=== PATIENT | male | born 1960 | race Caucasian/White ===

== ENCOUNTER 2016-07-30 10:37 | Inpatient (IN) | payer MEDICAID, OTHER, SELFPAY ==
[~2016-07-30] VITALS: Ht 185.4 cm; Wt 198.4 kg
[2016-07-30] MEDS ORDERED: methylPREDNISolone SOD SUCC 125 MG/2 ML ONE (11:25)
[2016-07-30] MEDS ORDERED: methylPREDNISolone SOD SUCC 125 MG/2 ML IVP ONE (11:30)
[2016-07-30] MEDS ORDERED: ALBUTEROL/IPRATROPIUM 2.5MG/0.5MG, 3 ML NPPB PRN (11:30)
[2016-07-30] MEDS ORDERED: SODIUM CHLORIDE FLUSH 10ML SYR IVF ONE (11:30)
[2016-07-30] MEDS ORDERED: ALBUTEROL/IPRATROPIUM 2.5MG/0.5MG, 3 ML ONE (11:50)
[2016-07-30 12:07] LABS: BLOOD UREA NITROGEN 24 mg/dL (7-18)
[2016-07-30 12:12] LABS: IS PT STATUS REG ER OR PRE ER? YES
[2016-07-30 12:16] LABS: DIFF TOTAL CELLS COUNTED 100 CELL DIFF
[2016-07-30 12:18] LABS: VERIFY COUNTS? YES
[2016-07-30] MEDS ORDERED: SODIUM CHLORIDE 0.9% 1,000ML IVBOLUS ONE ×2 (12:30)
[2016-07-30] MEDS ORDERED: AZITHROMYCIN 500 MG in SODIUM CHLORIDE 0.9% 250 ML IVPB ONE (12:30)
[2016-07-30] MEDS ORDERED: CEFTRIAXONE PMX 1GM/50ML 50 ML IVPB ONE (12:30)
[2016-07-30 12:50] LABS: ABG COLLECTION SITE RIGHT RADIAL; COLLATERAL CIRCULATION TESTING NORMAL
[2016-07-30] MEDS ORDERED: DIVA500T2 PO (13:04)
[2016-07-30] MEDS ORDERED: GABA600T2 PO (13:04)
[2016-07-30] MEDS ORDERED: METO25TA35 PO (13:04)
[2016-07-30] MEDS ORDERED: AMLO10TA4 PO (13:04)
[2016-07-30] MEDS ORDERED: LISI-170 PO (13:04)
[2016-07-30] MEDS ORDERED: MONT10TA6 PO (13:04)
[2016-07-30] MEDS ORDERED: ZOLP10TA PO (13:04)
[2016-07-30] MEDS ORDERED: FAMO-79 PO (13:04)
[2016-07-30] MEDS ORDERED: APIX5TAB PO (13:04)
[2016-07-30] MEDS ORDERED: LORA0.5T PO (13:04)
[2016-07-30] MEDS ORDERED: SODIUM CHLORIDE 0.9% 1,000 ML IV ONE (13:33)
[2016-07-30] MEDS ORDERED: QUET300T5 PO (13:36)
[2016-07-30] MEDS ORDERED: ALBUTEROL SULFATE 2.5 MG/3 ML ONE (13:58)
[2016-07-30] MEDS ORDERED: ONDANSETRON 2MG/ML, 2ML IVPush PRN (14:00)
[2016-07-30] MEDS ORDERED: OXYcodone IR 5MG TABLET PO PRN (14:00)
[2016-07-30] MEDS ORDERED: ZOLPIDEM 10MG TABLET PO PRN (14:00)
[2016-07-30] MEDS ORDERED: CEFTRIAXONE 1,000 MG in SODIUM CHLORIDE 0.9% 50 ML IV SCH (14:00)
[2016-07-30] MEDS ORDERED: POLYETHYLENE GLYCOL 17 GM PACKET PO PRN (14:00)
[2016-07-30] MEDS ORDERED: ACETAMINOPHEN 325 MG TABLET PO PRN (14:00)
[2016-07-30] MEDS: AZITHROMYCIN 500 MG in SODIUM CHLORIDE 0.9% 250 ML IV SCH (14:01)
[2016-07-30] MEDS ORDERED: CEFTRIAXONE PMX 1GM/50ML 50 ML ONE (14:11)
[2016-07-30 14:49] LABS: IS PT STATUS REG ER OR PRE ER? YES
[2016-07-30] MEDS ORDERED: NALOXONE 0.4 MG/ML, 1ML IVPush ONE (17:30)
[2016-07-30] MEDS ORDERED: ALBUTEROL SULFATE 2.5 MG/3 ML NPPB SCH (18:00)
[2016-07-30] MEDS: SODIUM CHLORIDE 0.9% 1,000 ML IV SCH (18:10)
[2016-07-30] MEDS: methylPREDNISolone SOD SUCC 125 MG/2 ML IVPush SCH (18:11)
[2016-07-30 20:00] VITALS: BP 102/72
[2016-07-30 20:08] LABS: IS PT STATUS REG ER OR PRE ER? NO
[2016-07-30] MEDS: SODIUM CHLORIDE FLUSH 3ML SYRINGE IVF SCH (21:00)
[2016-07-30] MEDS: DIVALPROEX 500 MG TABLET.DR PO SCH (21:22)
[2016-07-30] MEDS: GABAPENTIN 300 MG CAPSULE PO SCH (21:23)
[2016-07-30] MEDS: QUETIAPINE 100MG TABLET PO SCH (21:23)
[2016-07-30] MEDS: FAMOTIDINE 20 MG TABLET PO SCH (21:24)
[2016-07-30] MEDS: MONTELUKAST 10 MG TABLET PO SCH (21:24)
[2016-07-30] MEDS: LORazepam 0.5MG TABLET PO SCH (21:24)
[2016-07-30] MEDS: APIXABAN 5 MG TABLET PO SCH (21:24)
[2016-07-30] MEDS ORDERED: ZOLPIDEM 5MG TABLET ONE (21:45)
[2016-07-31] MEDS: methylPREDNISolone SOD SUCC 125 MG/2 ML IVPush SCH ×4 (00:07→18:43)
[2016-07-31] MEDS: ALBUTEROL/IPRATROPIUM 2.5MG/0.5MG, 3 ML NPPB SCH ×7 (02:00→23:33)
[2016-07-31 04:47] LABS: ASPARTATE AMINO TRANSFERASE 42 U/L (15-37); BLOOD UREA NITROGEN 31 mg/dL (7-18)
[2016-07-31 05:05] LABS: DIFF TOTAL CELLS COUNTED 100 CELL DIFF
[2016-07-31 05:07] LABS: VERIFY COUNTS? YES
[2016-07-31] MEDS: SODIUM CHLORIDE 0.9% 1,000 ML IV SCH ×2 (05:36→16:38)
[2016-07-31] MEDS: LORazepam 0.5MG TABLET PO SCH (09:00)
[2016-07-31] MEDS: SODIUM CHLORIDE FLUSH 3ML SYRINGE IVF SCH ×2 (09:00→21:00)
[2016-07-31] MEDS: QUETIAPINE 100MG TABLET PO SCH ×2 (09:32→21:22)
[2016-07-31] MEDS: FAMOTIDINE 20 MG TABLET PO SCH ×2 (09:32→21:22)
[2016-07-31] MEDS: SENNA/DOCUSATE TABLET PO SCH (09:32)
[2016-07-31] MEDS: DIVALPROEX 500 MG TABLET.DR PO SCH ×2 (09:33→21:22)
[2016-07-31] MEDS: GABAPENTIN 300 MG CAPSULE PO SCH ×2 (09:33→21:22)
[2016-07-31] MEDS: APIXABAN 5 MG TABLET PO SCH ×2 (09:33→21:23)
[2016-07-31 12:22] LABS: ABG COLLECTION SITE LEFT BRACHIAL
[2016-07-31] MEDS: INSULIN ASPART 100 UNITS/ML, PEN SQ-INSULIN SCH ×3 (12:22→21:19)
[2016-07-31] MEDS: SODIUM CHLORIDE FLUSH 10ML SYR IVF PRN ×2 (12:23→21:23)
[2016-07-31] MEDS: CEFTRIAXONE PMX 1GM/50ML 50 ML IV SCH (13:06)
[2016-07-31 13:18] LABS: FIO2 50 %
[2016-07-31] MEDS: AZITHROMYCIN 500 MG in SODIUM CHLORIDE 0.9% 250 ML IV SCH (14:37)
[2016-07-31] MEDS: MONTELUKAST 10 MG TABLET PO SCH (21:23)
[2016-08-01] MEDS: methylPREDNISolone SOD SUCC 125 MG/2 ML IVPush SCH ×5 (00:38→23:21)
[2016-08-01] MEDS: SODIUM CHLORIDE 0.9% 1,000 ML IV SCH (03:01)
[2016-08-01] MEDS: ALBUTEROL/IPRATROPIUM 2.5MG/0.5MG, 3 ML NPPB SCH ×4 (03:19→19:24)
[2016-08-01 04:47] LABS: BLOOD UREA NITROGEN 31 mg/dL (7-18)
[2016-08-01] MEDS: INSULIN ASPART 100 UNITS/ML, PEN SQ-INSULIN SCH ×4 (08:15→20:20)
[2016-08-01] MEDS: INSULIN DETEMIR 100 UNITS/ML, PEN SQ-INSULIN SCH ×2 (08:22→20:19)
[2016-08-01] MEDS ORDERED: SODIUM CHLORIDE 0.9% 1,000 ML IV SCH (08:30)
[2016-08-01] MEDS: SENNA/DOCUSATE TABLET PO SCH (09:00)
[2016-08-01] MEDS: APIXABAN 5 MG TABLET PO SCH ×2 (10:58→20:18)
[2016-08-01] MEDS: DIVALPROEX 500 MG TABLET.DR PO SCH ×2 (10:58→20:18)
[2016-08-01] MEDS: FAMOTIDINE 20 MG TABLET PO SCH ×2 (10:59→20:18)
[2016-08-01] MEDS: GABAPENTIN 300 MG CAPSULE PO SCH ×2 (10:59→20:19)
[2016-08-01] MEDS: QUETIAPINE 100MG TABLET PO SCH ×2 (11:00→20:18)
[2016-08-01] MEDS: SODIUM CHLORIDE FLUSH 10ML SYR IVF PRN ×2 (11:20→11:22)
[2016-08-01] MEDS: SODIUM CHLORIDE FLUSH 3ML SYRINGE IVF SCH ×2 (11:25→20:19)
[2016-08-01] MEDS: CEFTRIAXONE PMX 1GM/50ML 50 ML IV SCH (12:31)
[2016-08-01] MEDS: AZITHROMYCIN 500 MG in SODIUM CHLORIDE 0.9% 250 ML IV SCH (14:22)
[2016-08-01] MEDS ORDERED: ZOLPIDEM 5MG TABLET ONE (20:16)
[2016-08-01] MEDS: ZOLPIDEM 10MG TABLET PO PRN (20:17)
[2016-08-01] MEDS: MONTELUKAST 10 MG TABLET PO SCH (20:18)
[2016-08-02 04:42] LABS: BLOOD UREA NITROGEN 25 mg/dL (7-18)
[2016-08-02] MEDS: methylPREDNISolone SOD SUCC 125 MG/2 ML IVPush SCH ×4 (05:53→22:08)
[2016-08-02] MEDS: QUETIAPINE 100MG TABLET PO SCH ×2 (07:47→21:44)
[2016-08-02] MEDS: APIXABAN 5 MG TABLET PO SCH ×2 (07:47→21:45)
[2016-08-02] MEDS: FAMOTIDINE 20 MG TABLET PO SCH ×2 (07:47→21:44)
[2016-08-02] MEDS: DIVALPROEX 500 MG TABLET.DR PO SCH ×2 (07:47→21:45)
[2016-08-02] MEDS: GABAPENTIN 300 MG CAPSULE PO SCH ×2 (07:48→21:45)
[2016-08-02] MEDS: INSULIN ASPART 100 UNITS/ML, PEN SQ-INSULIN SCH ×4 (07:49→21:46)
[2016-08-02] MEDS: INSULIN DETEMIR 100 UNITS/ML, PEN SQ-INSULIN SCH ×2 (07:50→21:45)
[2016-08-02] MEDS: SODIUM CHLORIDE FLUSH 3ML SYRINGE IVF SCH ×2 (07:50→21:00)
[2016-08-02] MEDS: SENNA/DOCUSATE TABLET PO SCH (07:50)
[2016-08-02] MEDS: ALBUTEROL/IPRATROPIUM 2.5MG/0.5MG, 3 ML NPPB SCH (09:00)
[2016-08-02] MEDS: METOPROLOL TARTRATE 25 MG TABLET PO SCH ×2 (10:48→21:45)
[2016-08-02] MEDS: LISINOPRIL 20 MG TABLET PO SCH ×2 (10:49→21:44)
[2016-08-02] MEDS: FUROSEMIDE 40 MG TABLET PO SCH (10:49)
[2016-08-02 11:25] VITALS: BP 146/83
[2016-08-02] MEDS: CEFTRIAXONE PMX 1GM/50ML 50 ML IV SCH (12:26)
[2016-08-02] MEDS ORDERED: ALBUTEROL/IPRATROPIUM 2.5MG/0.5MG, 3 ML NPPB PRN (15:00)
[2016-08-02] MEDS: AZITHROMYCIN 500 MG in SODIUM CHLORIDE 0.9% 250 ML IV SCH (15:24)
[2016-08-02 19:58] VITALS: BP 156/82
[2016-08-02] MEDS: MONTELUKAST 10 MG TABLET PO SCH (21:44)
[2016-08-02] MEDS: ZOLPIDEM 10MG TABLET PO PRN (22:08)
[2016-08-03] MEDS: hydrALAzine 20 MG/ML, 1ML IVPush PRN ×2 (00:43→20:08)
[2016-08-03 01:29] VITALS: BP 172/86
[2016-08-03] MEDS: methylPREDNISolone SOD SUCC 125 MG/2 ML IVPush SCH ×2 (06:20→10:55)
[2016-08-03 06:48] LABS: BLOOD UREA NITROGEN 33 mg/dL (7-18)
[2016-08-03] MEDS: INSULIN ASPART 100 UNITS/ML, PEN SQ-INSULIN SCH ×4 (07:00→20:02)
[2016-08-03 08:00] VITALS: BP 156/98
[2016-08-03] MEDS: INSULIN DETEMIR 100 UNITS/ML, PEN SQ-INSULIN SCH ×2 (08:00→20:01)
[2016-08-03] MEDS: SODIUM CHLORIDE FLUSH 3ML SYRINGE IVF SCH ×2 (09:00→20:03)
[2016-08-03] MEDS: QUETIAPINE 100MG TABLET PO SCH ×2 (10:53→20:00)
[2016-08-03] MEDS: APIXABAN 5 MG TABLET PO SCH ×2 (10:54→19:59)
[2016-08-03] MEDS: FUROSEMIDE 40 MG TABLET PO SCH (10:54)
[2016-08-03] MEDS: DIVALPROEX 500 MG TABLET.DR PO SCH ×2 (10:54→20:00)
[2016-08-03] MEDS: LISINOPRIL 20 MG TABLET PO SCH ×2 (10:54→20:00)
[2016-08-03] MEDS: METOPROLOL TARTRATE 25 MG TABLET PO SCH ×2 (10:54→20:00)
[2016-08-03] MEDS: SENNA/DOCUSATE TABLET PO SCH (10:54)
[2016-08-03] MEDS: FAMOTIDINE 20 MG TABLET PO SCH ×2 (10:54→19:59)
[2016-08-03] MEDS: GABAPENTIN 300 MG CAPSULE PO SCH ×2 (10:55→20:00)
[2016-08-03 12:02] VITALS: BP 156/76
[2016-08-03] MEDS: CEFTRIAXONE PMX 1GM/50ML 50 ML IV SCH (12:36)
[2016-08-03] MEDS: AZITHROMYCIN 500 MG in SODIUM CHLORIDE 0.9% 250 ML IV SCH (14:02)
[2016-08-03 19:28] VITALS: BP 170/95
[2016-08-03] MEDS: MONTELUKAST 10 MG TABLET PO SCH (20:00)
[2016-08-03] MEDS: ZOLPIDEM 10MG TABLET PO PRN (20:01)
[2016-08-03] MEDS: methylPREDNISolone SOD SUCC 40 MG/ML IVPush SCH (20:02)
[2016-08-04 04:51] VITALS: BP 153/83
[2016-08-04] MEDS: INSULIN ASPART 100 UNITS/ML, PEN SQ-INSULIN SCH ×2 (08:08→12:27)
[2016-08-04] MEDS: INSULIN DETEMIR 100 UNITS/ML, PEN SQ-INSULIN SCH (08:09)
[2016-08-04 08:16] VITALS: BP 155/80
[2016-08-04] MEDS: SODIUM CHLORIDE FLUSH 3ML SYRINGE IVF SCH (09:00)
[2016-08-04] MEDS: methylPREDNISolone SOD SUCC 40 MG/ML IVPush SCH (09:18)
[2016-08-04] MEDS: FUROSEMIDE 40 MG TABLET PO SCH (09:19)
[2016-08-04] MEDS: LISINOPRIL 20 MG TABLET PO SCH (09:19)
[2016-08-04] MEDS: QUETIAPINE 100MG TABLET PO SCH (09:19)
[2016-08-04] MEDS: METOPROLOL TARTRATE 25 MG TABLET PO SCH (09:19)
[2016-08-04] MEDS: SENNA/DOCUSATE TABLET PO SCH (09:20)
[2016-08-04] MEDS: GABAPENTIN 300 MG CAPSULE PO SCH (09:20)
[2016-08-04] MEDS: FAMOTIDINE 20 MG TABLET PO SCH (09:21)
[2016-08-04] MEDS: APIXABAN 5 MG TABLET PO SCH (09:21)
[2016-08-04] MEDS: DIVALPROEX 500 MG TABLET.DR PO SCH (09:21)
[2016-08-04] MEDS ORDERED: FURO40TA6 PO (10:35)
[2016-08-04] MEDS ORDERED: GUAI400T26 PO (10:35)
[2016-08-04] MEDS ORDERED: PRED10TA PO (10:35)
[2016-08-04] MEDS ORDERED: CEFD300C37 PO (10:35)
[2016-08-04 14:15] VITALS: BP 123/79
== END 2016-08-04 15:34 | disposition home or self-care (01) | DRG 871 ==
LOC: ED 13:12 → EDIP 13:33 → CCU 17:31 → 3NW 08-02 11:00
PROVIDERS: ADMIT Internal Medicine; ATTEND Internal Medicine
PROC: 5A09457 Assistance with Respiratory Ventilation, 24-96 Consecutive Hours, Continuous Positive Airway Pressure (ICD-10-PCS; principal; 2016-07-31)
DX: A41.9 Sepsis, unspecified organism (principal); J96.01 Acute respiratory failure with hypoxia; R65.21 Severe sepsis with septic shock; N17.0 Acute kidney failure with tubular necrosis; J18.9 Pneumonia, unspecified organism; E44.0 Moderate protein-calorie malnutrition; J44.0 Chronic obstructive pulmonary disease with (acute) lower respiratory infection; D68.59 Other primary thrombophilia; I50.32 Chronic diastolic (congestive) heart failure; J44.1 Chronic obstructive pulmonary disease with (acute) exacerbation; F31.9 Bipolar disorder, unspecified; K21.9 Gastro-esophageal reflux disease without esophagitis; F41.9 Anxiety disorder, unspecified; I48.91 Unspecified atrial fibrillation; I10 Essential (primary) hypertension; G62.9 Polyneuropathy, unspecified; E66.01 Morbid (severe) obesity due to excess calories; I48.2 Chronic atrial fibrillation; E78.5 Hyperlipidemia, unspecified; Z79.01 Long term (current) use of anticoagulants; Z82.0 Family history of epilepsy and other diseases of the nervous system; Z82.3 Family history of stroke; Z87.891 Personal history of nicotine dependence; Z83.3 Family history of diabetes mellitus; T38.0X5A Adverse effect of glucocorticoids and synthetic analogues, initial encounter; G89.29 Other chronic pain; R73.9 Hyperglycemia, unspecified; I11.0 Hypertensive heart disease with heart failure
CPT/HCPCS: 36415; 36600; 71010; 80048; 80053; 80164; 82040; 82607; 82746; 82803; 82962; 83036; 83605; 83880; 84145; 84439; 84443; 84481; 84484; 85025; 85610; 85730; 87040; 87070; 87081; 87205; 93005; 93306; 94640; 94660; 96365; 96375; 99291; J0456; J0696; J1815; J7613; J7620; J0360; J2920; J2930; J7030; J7050